=== PATIENT | female | born 1940 | race Caucasian/White ===

== ENCOUNTER 2018-12-25 16:02 | Emergency (ER) | payer OTHER, MEDICAID ==
[~2018-12-25] VITALS: Ht 152.4 cm; Wt 55.8 kg
[2018-12-25 16:08] VITALS: Ht 152.4 cm; Wt 55.8 kg
[2018-12-25 17:07] LABS: BASOPHIL % 0.7 % (0-2); PLATELET COUNT 253 x10^3mcL (130-400)
[2018-12-25 17:17] LABS: CALCIUM 9.6 mg/dL (8.5-10.1); CARBON DIOXIDE 27.9 mmol/L (21-32); CHLORIDE SERUM 107 mmol/L (98-107); CREATININE SERUM 0.9 mg/dL (0.6-1.0); GLUCOSE SERUM 117 mg/dL (74-106); POTASSIUM SERUM 4.6 mmol/L (3.5-5.1); SODIUM SERUM 140 mmol/L (136-145)
[2018-12-25 17:21] LABS: ALKALINE PHOSPHATASE 70 U/L (46-116); ALT/SGPT 32 U/L (14-59); AST/SGOT 21 U/L (15-37); BILIRUBIN TOTAL 0.18 mg/dL (0.20-1.00); TOTAL PROTEIN, SERUM 7.2 g/dL (6.4-8.2)
[2018-12-25 17:22] LABS: ALBUMIN 3.1 g/dL (3.4-5.0)
[2018-12-25] MEDS ORDERED: ZOCOR10 MG (19:50)
[2018-12-25 22:20] VITALS: BP 135/74
== END 2018-12-25 22:20 | disposition short-term general hospital (02) ==
LOC: ED 16:02
PROVIDERS: Emergency Medicine
DX: R07.89 Other chest pain (principal); R20.2 Paresthesia of skin; R06.02 Shortness of breath; E78.00 Pure hypercholesterolemia, unspecified; Z88.6 Allergy status to analgesic agent; Z88.5 Allergy status to narcotic agent
CPT/HCPCS: 36415; 83880